=== PATIENT | female | born 1990 | race Caucasian/White ===

== ENCOUNTER 2016-10-18 22:37 | Emergency (ER) | payer OTHER ==
[~2016-10-18] VITALS: Ht 157.5 cm; Wt 54.4 kg
[~2016-10-18 22:37] MED LIST: ANTI-GAS 8080 MG PO; COL100 PO; FERROUS SULFAT325 M2 PO; KEFLEX500 MG PO; MOT800 PO; MYL80 CH; PREMARIN0.625 MG PO; ZOF4 PO; ZOFI IV; ZOFRAN ODT4 MG SL
[2016-10-19 01:18] LABS: BASOPHIL % 0.3 % (0-2); PLATELET COUNT 157 x10^3mcL (130-400); RED CELL DISTRIBUTION WIDTH 12.9 % (11.5-14.5)
[2016-10-19 01:29] LABS: CALCIUM 9.3 mg/dL (8.5-10.1); CARBON DIOXIDE 29.9 mmol/L (21-32); CHLORIDE SERUM 104 mmol/L (98-107); CREATININE SERUM 0.6 mg/dL (0.6-1.0); GFR1 > 60 mL/min; GLUCOSE SERUM 96 mg/dL (74-106); POTASSIUM SERUM 4.1 mmol/L (3.5-5.1); SODIUM SERUM 140 mmol/L (136-145)
[2016-10-19 01:33] LABS: ALBUMIN 3.9 g/dL (3.4-5.0); ALKALINE PHOSPHATASE 101 U/L (46-116); ALT/SGPT 70 U/L (14-59); AST/SGOT 103 U/L (15-37); BILIRUBIN TOTAL 0.5 mg/dL (0.20-1.00); TOTAL PROTEIN, SERUM 8.1 g/dL (6.4-8.2)
[2016-10-19 02:14] VITALS: BP 117/78
== END 2016-10-19 02:14 | disposition home or self-care (01) ==
LOC: ED 22:37
PROVIDERS: Emergency Medicine
DX: R51 Headache (principal); Z88.1 Allergy status to other antibiotic agents
CPT/HCPCS: J1200; J1885; J2405; J7030

== ENCOUNTER 2016-12-08 22:30 | Emergency (ER) | payer OTHER ==
[2016-12-09 01:03] VITALS: BP 115/80
== END 2016-12-09 01:32 | disposition left against medical advice (07) ==
LOC: ED 22:30
DX: Z53.21 Procedure and treatment not carried out due to patient leaving prior to being seen by health care provider (principal)

== ENCOUNTER 2017-02-26 02:26 | Emergency (ER) | payer OTHER ==
[~2017-02-26] VITALS: Ht 160 cm; Wt 55.3 kg
[2017-02-26 02:42] VITALS: Ht 160 cm; Wt 55.3 kg
[2017-02-26 03:29] LABS: BASOPHIL % 0.4 % (0-2); PLATELET COUNT 181 x10^3mcL (130-400); RED CELL DISTRIBUTION WIDTH 12.4 % (11.5-14.5)
[2017-02-26 03:39] LABS: CALCIUM 9.1 mg/dL (8.5-10.1); CARBON DIOXIDE 25.4 mmol/L (21-32); CHLORIDE SERUM 102 mmol/L (98-107); CREATININE SERUM 0.7 mg/dL (0.6-1.0); GFR1 > 60 mL/min; GLUCOSE SERUM 109 mg/dL (74-106); POTASSIUM SERUM 3.7 mmol/L (3.5-5.1); SODIUM SERUM 136 mmol/L (136-145)
[2017-02-26 03:43] LABS: ALBUMIN 3.9 g/dL (3.4-5.0); ALKALINE PHOSPHATASE 87 U/L (46-116); ALT/SGPT 26 U/L (14-59); AST/SGOT 15 U/L (15-37); BILIRUBIN TOTAL 0.46 mg/dL (0.20-1.00); LIPASE 121 IU/L (73-393); TOTAL PROTEIN, SERUM 7.9 g/dL (6.4-8.2)
[2017-02-26 04:44] LABS: microscopic required? YES; urine erythrocyte NEGATIVE (NEGATIVE)
[2017-02-26 06:17] VITALS: BP 134/72
== END 2017-02-26 06:17 | disposition home or self-care (01) ==
LOC: ED 02:26
PROVIDERS: Emergency Medicine
DX: R10.31 Right lower quadrant pain (principal); N39.0 Urinary tract infection, site not specified; N80.9 Endometriosis, unspecified; Z91.013 Allergy to seafood; Z88.1 Allergy status to other antibiotic agents
CPT/HCPCS: J0500; J1885; J2405; J7030

== ENCOUNTER 2017-04-07 22:04 | Emergency (ER) | payer OTHER ==
[~2017-04-07] VITALS: Ht 160 cm; Wt 55.8 kg
[2017-04-07 22:17] VITALS: Ht 160 cm; Wt 55.8 kg
[2017-04-07 23:17] VITALS: BP 116/92
== END 2017-04-07 23:17 | disposition home or self-care (01) ==
LOC: ED 22:04
DX: M25.561 Pain in right knee (principal)

== ENCOUNTER 2017-07-19 19:21 | Emergency (ER) | payer BC, OTHER ==
[~2017-07-19] VITALS: Ht 157.5 cm; Wt 54.9 kg
[2017-07-19 21:43] VITALS: BP 116/75
== END 2017-07-19 22:39 | disposition home or self-care (01) ==
LOC: ED 19:21
DX: G44.209 Tension-type headache, unspecified, not intractable (principal); Z90.49 Acquired absence of other specified parts of digestive tract; Z91.013 Allergy to seafood; Z88.1 Allergy status to other antibiotic agents
CPT/HCPCS: 20552; J1885; J2765

== ENCOUNTER 2017-09-05 03:05 | Emergency (ER) | payer OTHER ==
[~2017-09-05] VITALS: Ht 157.5 cm; Wt 56.2 kg
[2017-09-05 03:22] VITALS: Ht 157.5 cm; Wt 56.2 kg
[2017-09-05 04:02] LABS: BASOPHIL % 0.3 % (0-2); PLATELET COUNT 149 x10^3mcL (130-400); RED CELL DISTRIBUTION WIDTH 12.8 % (11.5-14.5)
[2017-09-05 04:19] LABS: CALCIUM 8.9 mg/dL (8.5-10.1); CARBON DIOXIDE 25.8 mmol/L (21-32); CHLORIDE SERUM 105 mmol/L (98-107); CREATININE SERUM 0.6 mg/dL (0.6-1.0); GFR1 > 60 mL/min; GLUCOSE SERUM 103 mg/dL (74-106); POTASSIUM SERUM 3.7 mmol/L (3.5-5.1); SODIUM SERUM 140 mmol/L (136-145)
[2017-09-05 04:24] LABS: ALBUMIN 3.7 g/dL (3.4-5.0); ALKALINE PHOSPHATASE 86 U/L (46-116); ALT/SGPT 32 U/L (14-59); AMYLASE 71 U/L (25-115); AST/SGOT 20 U/L (15-37); BILIRUBIN TOTAL 0.49 mg/dL (0.20-1.00); LIPASE 133 IU/L (73-393); TOTAL PROTEIN, SERUM 7.5 g/dL (6.4-8.2)
[2017-09-05 04:52] VITALS: BP 117/85
== END 2017-09-05 04:52 | disposition home or self-care (01) ==
LOC: ED 03:05
PROVIDERS: Emergency Medicine
DX: R10.11 Right upper quadrant pain (principal); R11.0 Nausea; Z88.1 Allergy status to other antibiotic agents; Z88.8 Allergy status to other drugs, medicaments and biological substances; Z91.013 Allergy to seafood; Z93.4 Other artificial openings of gastrointestinal tract status; Z90.49 Acquired absence of other specified parts of digestive tract; Z87.42 Personal history of other diseases of the female genital tract
CPT/HCPCS: 36415; J1885; Q0162